=== PATIENT | female | born 2000 | race Caucasian/White ===

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

== ENCOUNTER 2018-07-27 05:37 | Inpatient (IN) ==
[2018-07-27] MEDS ORDERED: Naloxone Inj 0.01 MG in Sodium Chloride 0.9% vial 1 ML IVP PRN ×2 (06:04→08:26)
[2018-07-27] MEDS ORDERED: Nalbuphine Inj 20 MG/ML Ampule IVP PRN ×3 (06:04→19:22)
[2018-07-27] MEDS ORDERED: CALCIUM CARBONATE 500 MG (TUMS) CHEWABLE TABLET PO PRN ×2 (06:04→19:22)
[2018-07-27] MEDS ORDERED: NALOXONE 0.4 MG/1 ML VIAL IVP PRN ×2 (06:04→08:26)
[2018-07-27] MEDS ORDERED: ePHEDrine Inj 50 MG/ML AMP IVP PRN ×2 (06:04→08:26)
[2018-07-27] MEDS ORDERED: MISOPROSTOL 200 MCG TABLET RECTAL PRN (06:04)
[2018-07-27] MEDS ORDERED: OXYTOCIN 10 UNIT/1 ML IM PRN (06:04)
[2018-07-27] MEDS ORDERED: Metoclopramide Inj 10 MG/2 ML VIAL IV PRN (06:04)
[2018-07-27] MEDS ORDERED: Phenylephrine Inj 50 MCG in Sodium Chloride 0.9% vial 0.5 ML IVP PRN ×2 (06:04→08:26)
[2018-07-27] MEDS ORDERED: BUTORPHANOL TARTRATE 2 MG/1 ML VIAL IVP PRN ×3 (06:04→19:22)
[2018-07-27] MEDS ORDERED: Carboprost Inj 250 MCG/ML AMP IM PRN (06:04)
[2018-07-27] MEDS ORDERED: TERBUTALINE SULFATE 1 MG/1 ML SDV SUBCUT PRN (06:04)
[2018-07-27] MEDS ORDERED: LIDOCAINE W/ SODIUM BICARB 0.5 ML SYR SUBD PRN ×2 (06:04→17:52)
[2018-07-27] MEDS ORDERED: diphenhydrAMINE 50 MG/1 ML VIAL IVP PRN ×2 (06:04→08:26)
[2018-07-27] MEDS ORDERED: Lidocaine 1% 10 MG/ML - 20 ML VIAL SUBCUT PRN (06:04)
[2018-07-27] MEDS ORDERED: FAMOTIDINE 20 MG/2 ML VIAL IVP PRN ×3 (06:04→19:22)
[2018-07-27] MEDS ORDERED: LIDOCAINE HCL 2 % 10 ML JELLY URO-JECT TOPICAL PRN (06:04)
[2018-07-27] MEDS ORDERED: CefOXitin Inj 2 GM in Sodium Chloride 0.9% 100 ML IV PRN (06:04)
[2018-07-27] MEDS ORDERED: ONDANSETRON 4 MG/2 ML VIAL IVP PRN ×2 (06:04→19:22)
[2018-07-27] MEDS ORDERED: CITRIC ACID/SODIUM CITRATE 30 ML CUP PO PRN (06:04)
[2018-07-27] MEDS ORDERED: fentaNYL Inj 100 MCG/2 ML VIAL IV PRN (06:04)
[2018-07-27] MEDS ORDERED: METHYLERGONOVINE MALEATE 0.2 MG/1 ML VIAL IM PRN (06:04)
[2018-07-27] MEDS ORDERED: Oxytocin 20 Units + LR 20 UNIT/1,000 ML BAG IV SCH ×3 (06:15→19:22)
[2018-07-27] MEDS: Lactated Ringers-OB Dept 1,000 ML PRIMARY IV SCH ×3 (06:30→13:39)
[2018-07-27 06:31] LABS: Hematocrit [HCT] 37.7 % (37.0-47.0); Hemoglobin [HGB] 12.5 g/dL (12.0-16.0); MEAN CORPUSCULAR HEMOGLOBIN 27.7 PG (27-31); MEAN CORPUSCULAR HGB CONC 33.2 g/dL (33-37); MEAN CORPUSCULAR VOLUME 83.6 FL (81-99); MEAN PLATELET VOLUME 8.8 FL (7.4-12.2); RED BLOOD COUNT 4.51 10^6/uL (4.20-5.40)
[2018-07-27] MEDS ORDERED: Fent/Bupiv 2mcg/0.0625% Epid 250 ML ONE (07:57)
--- NOTE | 2018-07-27 08:20 | CRNA.PROGR ---
Anesthesia Time - Procedure/Recovery Time Start Date: 07/27/18 End Date: 07/27/18 Anesthesia : Time In: 07:23 Anesthesia : Time Out: 15:30 Anesthesia : Total Time: 487 - Total Anesthesia Time Total Anesthesia Time (minutes): 487 - Other Weight: 89.358 kg Height: 4 ft 11 in Body Mass Index (BMI): 39.7 Physical Status: P2 Anesthesia Type: Epidural Obstetrics: Planned vaginal delivery w/ neuraxial labor anesthesia/analog
--- NOTE | 2018-07-27 08:26 | CRNA.PROCE ---
Central Neuraxis Block Placemt - - Safety Measures: Site Verified - - Type of Block: Epidural Reason for Block: Analgesia Moniters Used During Block: SPO2, NIBP Positioning: Sitting Skin Prep Used: ChloroPrep (Twice) Skin Infiltration - Enter Amount Used in Comment Field: 1% Xylocaine (mL): Yes (2.5 ml) Spinal Needle Used: 18 Hustead 80 mm (GERONIMO with saline) Local Anesthetic - Enter Amount Used in Comment Field: 1.5 % Xylocaine with Epinephrine 1:200,000 (mL): Yes (4 ml as test dose @742) Number of Centimeters Catheter Threaded: 4 (Right sided parasthesia initial pass of catheter. Had to relocate epidural space with Left directed needle to introduce catheter with no discomfort.) Bioclusive Dressing Applied: Yes (skin prep under all adhesive) - - Additional Details: Reported to be 6 cm with membranes intact 35 min prior to placing epidural. Tesst dose warm legs and buttocks. No appreciable motoor blockade. 3 Scenarios of delivery discussed with patient. Mother and present. Started infusion @ 755. See orders.Decision to @ 1530. Anesthesia Time - Other Weight: 89.358 kg Height: 4 ft 11 in Body Mass Index (BMI): 39.7
[2018-07-27] MEDS ORDERED: fentaNYL 2 MCG/BUPIVACAINE 0.0625%/NS 0.9% 250 ML BAG EPIDURAL SCH (08:30)
--- NOTE | 2018-07-27 08:46 | OB.PROGRES ---
Date of Service: 07/27/18 Time of Service: 07:30 Interval History: 18 yo at 39 6/7 weeks gestation (by 6 week u/s) presented at about 0530 with increased pain and frequency of contractions. She was seen early 07/26/18 with contractions but was in early labor at that time. Today she was 5-6 cm with a bulging bag so admitted in active labor. notable for obesity in - but weight is down 5lbs since diagnosis. H/o chronic htn but blood pressures have been normal during . Yesterday morning she had a couple of elevated pressures but gestational htn panel unremarkable, normal spot urine pr:cr. Blood pressures normalized with rest. U/s on 07/14/18 - baby measuring 26%ile, DILIA 11, posterior placenta, vertex. PMH Mitral valve prolapse, tachycardia - on metoprolol prn, has used maybe 2x during PCOS/insulin resistance - states she takes metformin prn, but not during (evaluated for amenorrhea off of nuva Ring in March 2017) Asthma - rare albuterol use, doesn't remember the last time she used it Chronic HTN - never treated but elevated pressures with chart review back to 2014, although most elevated pressures in ER. GERD - on protonix PSH Tonsillectomy SH , no etoh, tobacco, illicit drug use FH No significant family history Objective - Cervical Exam Cervical Exam: 5-6/90/-2, vertex, bulging bag but head still ballotable [place]: were q5 mins, have slowed down since epidural was placed Heart Rate: baseline 140, mod variability, accels, no decels Heart Rate Interpretation Category: Category I - Labs CBC and BMP: 07/27/18 06:10 - Vital Signs Last Taken Vital Signs: Vital Signs - Last Taken Temperature 97.7 F 07/27/18 05:47 Pulse Rate 122 H 07/27/18 05:47 Respiratory Rate 18 07/27/18 05:47 Blood Pressure 130/74 07/27/18 05:47 Pulse Ox 98 07/27/18 05:47 Assessment and Plan - Patient Problems (1) Active labor at term Current Visit: Yes Status: Acute Support Text: 18 yo at 39 6/7 weeks -Will augment with pitocin now as contractions have slowed -GBS negative -Rubella nonimmune -Pain controlled with epidural -H/o asthma and likely HTN -Continue close observation
--- NOTE | 2018-07-27 10:03 | OB.PROGRES ---
Date of Service: 07/27/18 Time of Service: 10:00 Interval History: Comfortable. Objective - Cervical Exam Cervical Exam: 6-7/100/-2, vertex, AROM, clear fluid [place]: q5 Heart Rate: baseline 140, mod variability, accels, possible 1 late decel - doesn't trace well in the beginning to be certain - Labs CBC and BMP: 07/27/18 06:10 - Vital Signs Last Taken Vital Signs: Vital Signs - Last Taken Temperature 97.7 F 07/27/18 05:47 Pulse Rate 113 H 07/27/18 07:55 Respiratory Rate 18 07/27/18 07:55 Blood Pressure 125/66 07/27/18 07:55 Pulse Ox 98 07/27/18 07:55 Assessment and Plan - Patient Problems (1) Active labor at term Current Visit: Yes Status: Acute Support Text: 18 yo at 39 6/7 weeks -S/p AROM, clear fluid -Pitocin at 4mU -GBS negative -Rubella nonimmune -Pain controlled with epidural -H/o asthma and likely HTN -Continue close observation
--- NOTE | 2018-07-27 13:48 | OB.PROGRES ---
Date of Service: 07/27/18 Time of Service: 13:46 Interval History: Becoming more uncomfortable with contractions. Objective - Cervical Exam Cervical Exam: 1, FSE placed [place]: q3-5 mins Heart Rate: baseline 125, moderate variability, intermittent variable decels. ROT Heart Rate Interpretation Category: Category II - Labs CBC and BMP: 07/27/18 06:10 - Vital Signs Last Taken Vital Signs: Vital Signs - Last Taken Temperature 97.7 F 07/27/18 10:00 Pulse Rate 98 07/27/18 11:00 Respiratory Rate 18 07/27/18 10:00 Blood Pressure 120/70 07/27/18 11:00 Pulse Ox 98 07/27/18 11:00 Assessment and Plan - Patient Problems (1) Active labor at term Current Visit: Yes Status: Acute Support Text: 18 yo at 39 6/7 weeks -FSE placed after decel to 60-90 that didn't trace well. -Pitocin stopped, IV opened, O2 started -GBS negative -Rubella nonimmune -Pain controlled with epidural -H/o asthma and likely HTN -Continue close observation
--- NOTE | 2018-07-27 14:34 | OB.PROGRES ---
Date of Service: 07/27/18 Time of Service: 14:25 Interval History: Position changes were attempted in order to help the head descent, patient was moved to her L side and had 2 repeated decels - late to 60 x 70 seconds, then a variable to 85. With sitting upright decels have stopped. Objective - Cervical Exam Cervical Exam: anterior lip/100/0 [place]: q2-3 cm Heart Rate: baseline 135, moderate variablity, accels, variables and a late to 60, now 30 mins with no decels Heart Rate Interpretation Category: Category II - Labs CBC and BMP: 07/27/18 06:10 - Vital Signs Last Taken Vital Signs: Vital Signs - Last Taken Temperature 97.7 F 07/27/18 10:00 Pulse Rate 102 H 07/27/18 12:00 Respiratory Rate 18 07/27/18 12:00 Blood Pressure 125/77 07/27/18 12:00 Pulse Ox 99 07/27/18 12:00 Assessment and Plan - Patient Problems (1) Active labor at term Current Visit: Yes Status: Acute Support Text: 18 yo at 39 6/7 weeks -OR crew contacted and standing by given deep decels -Pit off -GBS negative -Rubella nonimmune -Pain controlled with epidural -H/o asthma and likely HTN -Continue close observation
--- NOTE | 2018-07-27 15:37 | OB.PROGRES ---
Date of Service: 07/27/18 Time of Service: 15:32 Interval History: More uncomfortable again with contractions. Objective - Cervical Exam Cervical Exam: 03/10-/0, more caput [place]: q3 mins Heart Rate: baseline 140, mod variability, accels, intermittent variable decels Heart Rate Interpretation Category: Category II - Labs CBC and BMP: 07/27/18 06:10 - Vital Signs Last Taken Vital Signs: Vital Signs - Last Taken Temperature 97.7 F 07/27/18 10:00 Pulse Rate 91 07/27/18 14:46 Respiratory Rate 18 07/27/18 14:46 Blood Pressure 128/69 07/27/18 14:46 Pulse Ox 98 07/27/18 14:46 Assessment and Plan - Patient Problems (1) Active labor at term Current Visit: Yes Status: Acute (2) intolerance to labor, delivered, current hospitalization Current Visit: Yes Status: Acute Code(s): O77.9 - Labor and delivery complicated by stress, unspecified (3) Failure of cervical dilation Current Visit: Yes Status: Acute Code(s): O62.0 - Primary inadequate contractions Support Text: 18 yo at 39 6/7 weeks by early u/s. Failure to dilate (greater than 2 hours with no cervical change while on pitocin for as much as the fetus will tolerate) and intolerance to labor/pitocin/L sided position especially. Risk, benefits of proceeding with a primary section discussed with patient, her , and her mother. Verbal and written consent obtained. Will proceed to the OR. OR crew in house already. Dr. Barakat to assist.
[2018-07-27] MEDS ORDERED: ONDANSETRON 4 MG/2 ML VIAL ONE (16:31)
[2018-07-27] MEDS ORDERED: LIDOCAINE MPF 2% - 5 ML (20 MG/1 ML) ONE ×3 (16:55→17:18)
[2018-07-27] MEDS ORDERED: AZITHROMYCIN 500 MG VIAL IV ONE (17:02)
[2018-07-27] MEDS ORDERED: Sodium Chloride 0.9% vial 10 ML ONE (17:03)
[2018-07-27] MEDS ORDERED: fentaNYL Inj 100 MCG/2 ML VIAL ONE ×2 (17:06→18:36)
[2018-07-27] MEDS ORDERED: KETAMINE 100 MG/1 ML - 5 ML ONE (17:07)
[2018-07-27] MEDS ORDERED: METHYLENE BLUE 10 MG/1 ML - 10 ML ONE (17:24)
[2018-07-27] MEDS ORDERED: MIDAZOLAM 5 MG/1 ML ONE (17:27)
[2018-07-27] MEDS ORDERED: fentaNYL Inj 100 MCG/2 ML VIAL IVP PRN (17:57)
[2018-07-27] MEDS ORDERED: Ondansetron ODT Tab 8 MG TAB PO PRN (17:57)
[2018-07-27] MEDS ORDERED: PROPOFOL 10 MG/1 ML (200 MG/20 ML) VIAL IV ONE (18:05)
[2018-07-27] MEDS ORDERED: Lactated Ringers 2,000 ML PRIMARY IV ONE (18:27)
[2018-07-27] MEDS: HYDROmorphone 2 MG/1 ML IVP PRN ×2 (18:32→18:45)
[2018-07-27] MEDS ORDERED: HYDROmorphone 2 MG/1 ML ONE (18:38)
--- NOTE | 2018-07-27 18:46 | CRNA.PROGR ---
Anesthesia Recovery Phase I - Post Anesthesia Evaluation Patient's Condition on Arrival in Phase I: Stable Patient's Condition on Arrival in Phase II: Stable (medicated) Pain Level: 8
--- NOTE | 2018-07-27 18:46 | CRNA.PROGR ---
Anesthesia Time - Procedure/Recovery Time Start Date: 07/27/18 End Date: 07/27/18 Anesthesia : Time In: 15:50 Anesthesia : Time Out: 18:23 Anesthesia : Total Time: 153 - Total Anesthesia Time Total Anesthesia Time (minutes): 153 - Other Weight: 89.358 kg Height: 4 ft 11 in Body Mass Index (BMI): 39.7 Physical Status: P2 Anesthesia Type: Spinal Block
--- NOTE | 2018-07-27 18:47 | CRNA.PROGR ---
Post Anesthesia Phase II - Post Anesthesia Phase II Patient Stable and Discharged To: OB Care Assumed By Surgeon: Ivan Dugan MD Temperature: 97.7 F Pulse Rate: 91 Respiratory Rate: 18 Blood Pressure: 128/69 Pulse Ox: 100 Total Violeta Score at Discharge: 9 Post Anesthesia Discharge Criteria Met: Yes
--- NOTE | 2018-07-27 18:51 | CRNA.PROCE ---
Central Neuraxis Block Placemt - - Safety Measures: Time Out Taken, Site Verified - - Type of Block: Subarachnoid Moniters Used During Block: EKG, SPO2, NIBP Positioning: Sitting Skin Prep Used: ChloroPrep (Twice) Draped: Yes Skin Infiltration - Enter Amount Used in Comment Field: 1% Xylocaine (mL): Yes (1.0) Introducer User: None Spinal Needle Used: 22 Ligia 80 mm (1 Dural puncture) Local Anesthetic - Enter Amount Used in Comment Field: 0.75 % Bupivacaine with Dextrose (ml): Yes (1 ml) Bioclusive Dressing Applied: No - - Additional Details: Still complained of Difficulty breathing even with 1 ml SAB dose. Short duration of complaining. Would of been good except for long prolonged uterine repair. Dosed epidural. supplemented IV. Got it done. Anesthesia Time - Other Weight: 89.358 kg Height: 4 ft 11 in Body Mass Index (BMI): 39.7
[2018-07-27] MEDS ORDERED: LANOLIN HPA 40 GM TUBE TOPICAL PRN (19:22)
[2018-07-27] MEDS ORDERED: diphenhydrAMINE 50 MG/1 ML VIAL IV PRN (19:22)
[2018-07-27] MEDS ORDERED: diphenhydrAMINE 25 MG CAPSULE PO PRN (19:22)
[2018-07-27] MEDS ORDERED: Naloxone Inj 0.01 MG, Sodium Chloride 0.9% vial 1 ML IVP PRN ×2 (19:22)
--- NOTE | 2018-07-27 19:25 | OB.OP.NOTE ---
Operative Report - - Surgeon: Ivan Dugan MD [employer] Commissioner: Trevon Barakat MD Anesthesia Type: Regional Anesthesia Provider: Mirian Miller CRNA Surgery Date: 07/27/18 Preoperative Diagnosis: Term , 39 6/7 weeks gestation. Cephalopelvic disproportion, failure to dilate, intolerance Postoperative Diagnosis: Same as above. TAGA male infant Procedure: primary LTCS Complications: Uterine extension, worse on Right Estimated Blood Loss (mL): 700 Urine Output (mL): 1,200 Fluids: 2600cc LR, 2600cc pitocin Indications: 18 yo G1 now P1 who first presented early 07/26/18 in early labor, she then returned 07/27/18 at about 0600 in active labor, 5-6 cm dilated. SHe labored through the day making progress, albeit slow. AROM about 0900 with clear fluid. By about 1300 she was 9 cm. Unfortunately the fetus was not tolerating pitocin or position changes, was initially having intermittent variables, occasional late. But by 3pm she had not dilated further, the cervix was noted to be edematous and the fetus was noted to have more caput. Decision made at that time to proceed with non-emergent LTCS. After the decsion was made then repetetive variables were noted as well, thus intolerance to not just the pitocin. She was again checked once she was prepped and draped and remained 9 cm dilated, 0 station. Findings: CPD TAGA male infant in LOT presentation Uterine extension Normal uterus, ovaries, 1 right paratubal cyst, otherwise normal fallopian tubes No e/o bladder incision with backfilling 420 ml of saline with methylene blue Description of Procedure: The patient was taken to the operating room where spinal anesthesia was found to be adequate. She was then prepared and draped in the normal sterile fashion in the dorsal supine position with a leftward tilt. A Pfannenstiel skin incision was then made with the scalpel and carried through to the underlying layer of fascia with the Bovie. Cautery was used for hemostasis for a bleeding vessel in the adipose tissue. The fascia was incised in the midline and the incision extended laterally with the Bovie. The superior aspect of the fascial incision was then grasped with the Aditya clamps, elevated, and the underlying rectus muscles dissected off bluntly. Attention was then turned to the inferior aspect of this incision which, in a similar fashion, was grasped with the Aditya clamps and the rectus muscles dissected off both bluntly and with the Bovie. The rectus muscle was then in the midline, and the peritoneum identified and entered digitally. The peritoneal incision was then extended superiorly and inferiorly with good visualization of the bladder. The Den retractor was then inserted and the vesicouterine peritoneum was identified. The lower uterine segment was incised in a transverse fashion with the scalpel. The uterine incision was then extended laterally in a blunt fashion. I was unable to get to the top of the 's head, Dr. Barakat attempted and was able to deliver the head in LOT presentation through the uterine incision. Extension was felt as the head elevated. The remainder of the body delivered atraumatically. The nose and mouth were suctioned with the bulb suction and the cord clamped and cut. The was handed off to the awaiting nurse. Cord gases and cord blood were sent for analysis. Apgars 9,9. The placenta was then removed manually; the uterus exteriorized, and cleared of all clots and debris. The uterine incision was noted to have extended both on the R and L side. Hemostasis was first attempted on the right. The uterine vessels were held out of the field and first a figure of 8 then running, locking 0 vicryl about a third of the way across. Then from the L side a Figure of 8 and then running, locking 0 Vicryl. Attention was turned back to the R side which was still bleeding. Probably 4 more figure of 8 stitches were used to obtain hemostasis ultimately, with special attention trying to avoid uterine vessels and the ureter. No obvious hematoma developed in that space. An embricating layer of the same suture was then used. To ultimately obtain excellent hemostasis, cautery and a third layer of 0-vicryl was used to close the serosa. The peritoneal cavity was then copiously irrigated with warm saline. The uterus was returned to the abdomen. The paracolic gutters were copiously irrigated with warm saline and a second look at the uterine incision continued to reveal excellent hemostasis. 400 mL of Methylene blue mixed with saline was then used to backfill the bladder. There was no e/o injury to the bladder. The peritoneum was closed with 3-0 Vicryl. The fascia reapproximated with looped 0-PDS in a running fashion. The subcutaneous space was irrigated copiously with warm saline and then closed first with 3-0 Vicryl and then more superficially with celia. The skin was reapproximated with Steri-Strips and a Silverlon dressing applied. Fundal massage was completed with no clots in vaginal vault. Of note, the patient was quite oozy throughout, although EBL was 700 mL. The patient tolerated the procedure well. Sponge, lap, and needle counts were correct x2. Mefoxin was given preoperatively less than one hour prior to incision time, azithromycin 500mg IV given after delivery of the infant. The patient was taken to the recovery room in stable condition. Given the bleeding will wait on giving her toradol and defer decision to start VTE ppx, other than SCDs, early ambulation. King was changed in the OR after the case given potential contamination from back filling. Will go ahead and give 2 doses of invanz as the head was quite low at time of delivery and potential contamination from king. Cord gases 7.252 pCO2 49.9 HCO3 22.0 BE -5 Patient Problems - Patient Problem List (1) Active labor at term Current Visit: Yes Status: Acute Category: Medical (2) intolerance to labor, delivered, current hospitalization Current Visit: Yes Status: Acute Code(s): O77.9 - Labor and delivery complicated by stress, unspecified Category: Medical (3) Failure of cervical dilation Current Visit: Yes Status: Acute Code(s): O62.0 - Primary inadequate contractions Category: Medical
[2018-07-27] MEDS ORDERED: HYDROmorphone 2 MG/1 ML IVP PRN (19:33)
[2018-07-27] MEDS: Acetaminophen 1000mg Inj 1,000 MG/100 ML VIAL IV SCH (20:03)
[2018-07-27] MEDS: D5-LR 1,000 ML PRIMARY IV SCH (21:36)
[2018-07-27] MEDS: Ertapenem Inj 1 GM in Sodium Chloride 0.9% 100 ML IV SCH (23:04)
[2018-07-27] MEDS: oxyCODONE-ACETAMINOPHEN 5-325 TAB PO PRN (23:42)
[2018-07-28] MEDS: KETOROLAC 15 MG/1 ML VIAL IVP SCH ×4 (01:38→19:32)
[2018-07-28] MEDS ORDERED: HYDROmorphone 2 MG/1 ML IVP PRN (01:59)
[2018-07-28] MEDS: oxyCODONE-ACETAMINOPHEN 5-325 TAB PO PRN ×5 (03:58→20:58)
[2018-07-28 04:41] LABS: Hematocrit [HCT] 31.5 % (37.0-47.0); Hemoglobin [HGB] 10.2 g/dL (12.0-16.0); MEAN CORPUSCULAR HEMOGLOBIN 27.8 PG (27-31); MEAN CORPUSCULAR HGB CONC 32.4 g/dL (33-37); MEAN CORPUSCULAR VOLUME 85.8 FL (81-99); MEAN PLATELET VOLUME 9.1 FL (7.4-12.2); RED BLOOD COUNT 3.67 10^6/uL (4.20-5.40)
[2018-07-28 04:50] LABS: BLOOD UREA NITROGEN 3 mg/dL (7-22); SERUM ALBUMIN 2.8 g/dL (3.5-4.8)
[2018-07-28] MEDS: D5-LR 1,000 ML PRIMARY IV SCH (05:51)
[2018-07-28] MEDS: Acetaminophen 1000mg Inj 1,000 MG/100 ML VIAL IV SCH (06:18)
[2018-07-28] MEDS: Prenatal Multivitamin Tab 1 TAB TAB PO SCH (08:51)
[2018-07-28] MEDS: Senna/Docusate Tab 1 TAB TAB PO SCH ×2 (08:52→22:06)
[2018-07-28] MEDS: Ertapenem Inj 1 GM in Sodium Chloride 0.9% 100 ML IV SCH (22:06)
[2018-07-29] MEDS: KETOROLAC 15 MG/1 ML VIAL IVP SCH (01:17)
[2018-07-29] MEDS: oxyCODONE-ACETAMINOPHEN 5-325 TAB PO PRN ×5 (01:19→21:11)
[2018-07-29] MEDS ORDERED: MMR VACCINE 12500 UNIT/0.5 ML SUBCUT ONE (09:00)
[2018-07-29] MEDS: ENOXAPARIN SODIUM 40 MG/0.4 ML SYRINGE SUBCUT SCH (09:56)
[2018-07-29] MEDS: Senna/Docusate Tab 1 TAB TAB PO SCH ×2 (09:56→21:10)
[2018-07-29] MEDS: Prenatal Multivitamin Tab 1 TAB TAB PO SCH (09:56)
[2018-07-29] MEDS: IBUPROFEN 800 MG TABLET PO SCH ×2 (10:07→15:45)
[2018-07-29 17:56] LABS: BLOOD UREA NITROGEN 12 mg/dL (7-22)
[2018-07-30] MEDS: IBUPROFEN 800 MG TABLET PO SCH ×2 (00:12→08:00)
[2018-07-30] MEDS: oxyCODONE-ACETAMINOPHEN 5-325 TAB PO PRN ×2 (04:59→09:35)
[2018-07-30] MEDS ORDERED: FERROUS GLUCONATE 324 MG TABLET PO SCH (09:00)
[2018-07-30] MEDS: Senna/Docusate Tab 1 TAB TAB PO SCH (09:35)
[2018-07-30] MEDS: Prenatal Multivitamin Tab 1 TAB TAB PO SCH (09:35)
[2018-07-30] MEDS: ENOXAPARIN SODIUM 40 MG/0.4 ML SYRINGE SUBCUT SCH (09:36)
[2018-07-30 10:31] VITALS: BP 128/88; RESP 18; TEMP 97.3; O2SAT 97
--- NOTE | 2018-08-10 22:13 | OB.PROGRES ---
Subjective Post Day: 1 Pain Management: PO Stern Catheter: Yes Flatus: Yes Lochia Color: Rubra/Red Small 10-25 ml Diet: Regular Feeding Method: Exculsively Ambulating: No Concerns / Additional Information: No complaints, pain seems to be fairly well controlled on toradol, which was started early this morning and po percocet (now that the pt has been eating a little bit more). Objective - General General Appearance: POSITIVE: No Acute Distress, Cooperative - Cardiovacular Cardiovascular Exam: POSITIVE: RRR, No Murmur Edema: +2 Pedal Edema Extremities: Negative Diane's - Bilaterally - Respiratory Respiratory Exam: POSITIVE: Clear to Auscultation - Bilaterally, Breathing Non Labored - Abdomen Bowel Sounds: Hypoactive Abdominal Wound Assessment: Silverlone Dressing Assesstment / Plan (1) S/P primary low transverse Status: Acute (2) intolerance to labor, delivered, current hospitalization Status: Resolved Assessment / Plan: -will complete 2 doses of invanz per previous orders. -start lovenox 24 hours post-op since pt's lochia has been scant and her BMI is right at 40. -continue with breast feeding assistance. -pain is well controlled with toradol and percocet. -d/c home in 1-2 days.
--- NOTE | 2018-08-10 22:16 | OB.PROGRES ---
Subjective Post Day: 2 Pain Management: PO Stern Catheter: No Flatus: Yes Lochia Color: Rubra/Red Scant < 10 ml Diet: Regular Feeding Method: Exculsively Ambulating: Yes Objective - General General Appearance: POSITIVE: No Acute Distress, Cooperative - Cardiovacular Cardiovascular Exam: POSITIVE: RRR, No Murmur Edema: +2 Pedal Edema Extremities: Negative Diane's - Bilaterally - Respiratory Respiratory Exam: POSITIVE: Clear to Auscultation - Bilaterally, Breathing Non Labored - Abdomen Bowel Sounds: Present Abdominal Wound Assessment: Silverlone Dressing Assesstment / Plan (1) S/P primary low transverse Status: Acute Assessment / Plan: -routine cares. -needs MMR prior to d/c. -continue lovenox for DVT prophylaxis. -breast feeding coming along--would benefit from another day in the hospital for intensive assistance and teaching. -rh positive. -d/c home in 1-2 days.
--- NOTE | 2018-08-10 22:19 | DCSUMMARY ---
Hospitalization Summary Admit Date: 07/27/18 Discharge Date: 07/30/18 Primary Diagnosis:: Term IUP, interance to labor, maternal obesity Primary Surgery and Date: primary low transverse section, 07/27/18 Delivery Type: Hospital Course: Pt had a normal post-operative course. She was started on lovenox for DVT prophylaxis on POD #1. Pain was controlled initially with toradol and percocet, then just percocet and motrin. / Postop Complications: no complications. Complications: no complications. Exam - Vitals Vital Signs: Vital Signs Temperature 97.3 F Temperature Source Temporal Artery Scan Pulse Rate [Pulse Oximeter] 107 Pulse Rate 105 Respiratory Rate 18 Blood Pressure [Left Arm] 119/75 Blood Pressure [Right Arm] 128/88 Blood Pressure 130/93 Pulse Ox 97 Oxygen Flow Rate RA Oxygen Delivery Method Room Air Height 4 ft 11 in Weight 197 lb - General General Appearance: No Acute Distress, Cooperative - Head Head Exam: Normal Inspection, Normocephalic - Respiratory Respiratory Exam: POSITIVE: Clear to Auscultation - Bilaterally, Breathing Non Labored - Cardiovascular Cardiovascular Exam: POSITIVE: RRR, No Murmur - GI/Abdominal GI/Abdominal Exam: POSITIVE: Normal Bowel Sounds, Soft - Psychiatric Psychiatric Exam: POSITIVE: Normal Affect, Normal Mood - Integumentary Integumentary Exam: POSITIVE: Normal Color, Warm, Dry Patient Problems - Patient Problem List (1) S/P primary low transverse Status: Acute Code(s): Z98.891 - History of uterine scar from previous surgery Category: Surgical
== END 2018-07-30 11:25 | disposition home or self-care (01) | DRG 788 ==
LOC: OBOP 05:37 → OBIP 06:04
PROVIDERS: ADMIT Student in an Organized Health Care Education/Training Program; ATTEND Family Medicine

== ENCOUNTER 2019-04-20 12:34 | Observation (INO) ==
[2019-04-20] MEDS ORDERED: CHARCOAL/SORBITOL SOLUTION 25 GM/120 ML TUBE PO ONE ×2 (12:38→12:39)
[2019-04-20] MEDS ORDERED: Sodium Chloride 0.9% 1,000 ML PRIMARY IV ONE (12:38)
[2019-04-20] MEDS ORDERED: ONDANSETRON 4 MG/2 ML VIAL IVP ONE (12:38)
[2019-04-20] MEDS ORDERED: ONDANSETRON 4 MG/2 ML VIAL ONE (12:42)
[2019-04-20 12:51] LABS: BLOOD UREA NITROGEN 8 mg/dL (7-22); BUN/CREATININE RATIO 13.33 (6-20); Hematocrit [HCT] 48.2 % (37.0-47.0); Hemoglobin [HGB] 15.4 g/dL (12.0-16.0); MEAN CORPUSCULAR VOLUME 80.5 FL (81-99); RED BLOOD COUNT 5.99 10^6/uL (4.20-5.40); SALICYLATE < 1.0 mg/dl (0-20); SERUM ALBUMIN 4.8 g/dL (3.5-4.8)
[2019-04-20 12:52] LABS: BASOPHILS # (AUTO) 0.04 10*3/UL; BASOPHILS % (AUTO) 0.4 % (0-1); EOSINOPHILS # (AUTO) 0.28 10*3/UL; LYMPHOCYTES # (AUTO) 2.41 10*3/uL; MEAN PLATELET VOLUME 8.7 FL (7.4-12.2); MONOCYTES # (AUTO) 0.47 10*3/UL (0.3-0.8); NEUTROPHILS # (AUTO) 6.15 10*3/UL; NEUTROPHILS % (AUTO) 65.4 % (50-80); PLATELET MORPHOLOGY COMMENT NORMAL MORPHOLOGY (NORM); RBC MORPHOLOGY COMMENT NORMAL MORPHOLOGY (NORM); WBC MORPHOLOGY COMMENT NORMAL MORPHOLOGY (NORM)
[2019-04-20 13:16] LABS: VENOUS PH 7.38 (7.32-7.42)
[2019-04-20] MEDS ORDERED: ONDANSETRON 4 MG/2 ML VIAL IVP PRN (17:07)
[2019-04-20] MEDS ORDERED: DOCUSATE 100 MG CAPSULE PO PRN (17:07)
[2019-04-20] MEDS ORDERED: LIDOCAINE W/ SODIUM BICARB 0.5 ML SYR SUBD PRN (17:07)
[2019-04-20] MEDS ORDERED: CALCIUM CARBONATE 500 MG (TUMS) CHEWABLE TABLET PO PRN (17:07)
[2019-04-20] MEDS ORDERED: ACETAMINOPHEN 325 MG TABLET PO PRN (17:07)
[2019-04-20] MEDS ORDERED: ALBUTEROL SULFATE 2.5 MG/3 ML NEB PRN (17:07)
[2019-04-20] MEDS: Lactated Ringers 1,000 ML PRIMARY IV SCH (18:20)
[2019-04-20 20:10] VITALS: RESP 20
[2019-04-21] MEDS: Lactated Ringers 1,000 ML PRIMARY IV SCH ×2 (01:55→10:07)
[2019-04-21] MEDS ORDERED: POTASSIUM CHLORIDE 20 MEQ TAB PO ONE (09:49)
[2019-04-21 13:15] VITALS: BP 124/78; TEMP 98.7; O2SAT 95
== END 2019-04-21 15:07 | disposition home or self-care (01) ==
LOC: MED/SURG 12:34 → ER 12:34 → MED/SURG 17:00
PROVIDERS: ADMIT Family Medicine; ATTEND Family Medicine